=== PATIENT | male | born 1970 | race African-American/Black ===

== ENCOUNTER 2017-02-04 11:17 | Inpatient (IN) | payer MEDICARE, OTHER ==
--- NOTE | ~2017-02-04 | DS ---
Discharge Summary [facility] [address] [facility] [place]. [address] NAME: KATHERIN HOPE : 70 STATUS : ADM IN [facility]#: [id number] AGE: 46 ADM/REG DATE : 02/04/17 MR#: [id number] REPORT SERV DATE: 02/06/17 DICTATED BY: COLBY WALTON DATE: 02/06/17 REPORT STATUS : Draft TRANSCRIBED BY: MODL DATE: 02/06/17 ADMISSION DATE: 02/04/2017 DISCHARGE DATE: 02/06/2017 DISCHARGE DIAGNOSES: 1. Community-acquired pneumonia, currently improving. 2. Asthma and chronic obstructive pulmonary disease, stable. 3. Chronic pain syndrome. 4. Hyperlipidemia. 5. Hypertension. 6. History of PE, after spine surgery, currently resolved. 7. Acute kidney injury, now resolved. CONSULTANTS DURING THIS HOSPITALIZATION: None. INVASIVE PROCEDURES DONE DURING THIS HOSPITALIZATION: None. BRIEF HISTORY OF PRESENT ILLNESS: The patient is a 46-year-old male with the above issues, came in with shortness of breath and midsternal chest pain, and thought that he had a PE, so he was admitted. For detailed history and physical exam, please see my note dictated on 02/04/2017. HOSPITAL COURSE: When I saw the patient in the emergency room, his CTA was already negative. He has not been on any anticoagulation and he has finished a course of his anticoagulation; however, on the CTA, there was a left upper lobe infiltrate and lingular infiltrate with a white count of 17,000. He was admitted. He was given aggressive nebulizing treatments. He was given IV antibiotics. Blood cultures remained negative at this time. His procalcitonin level was elevated at 4.07. Within 24 hours, he continued to improve. He was switched to oral medications. He is not requiring O2. He is ambulatory. He is tolerating a diet and at this point, he feels that he can go home and recover in the home setting. DISCHARGE DISPOSITION: Home. DISCHARGE ACTIVITY: As tolerated. DISCHARGE DIET: Low sodium diet. DISCHARGE MEDICATIONS: Zithromax 250 mg one tablet daily for two more days, Omnicef 300 mg one tablet twice daily for five more days, Zovirax 800 mg p.o. five times daily to finish a course of therapy for shingles, Lipitor 20 mg daily, Flonase one spray each nostril daily, hydrocodone 10/325 one tablet four times daily, Protonix 40 mg once daily, Lyrica 150 mg twice daily, Zantac 150 mg once daily, lisinopril 20 mg once daily, Incruse Ellipta one puff once daily, Breo Ellipta one puff once daily, Atrovent two puffs nasal spray, albuterol one puff every four hours p.r.n., Fioricet one tablet p.o. daily p.r.n. for headache, Flexeril 10 mg daily p.r.n. for muscle spasms, and Vistaril 25 mg p.o. daily. Discharge Summary [address] [address] NAME: KATHERIN HOPE : 70 STATUS : ADM IN PAT#: [id number] AGE: 46 ADM/REG DATE : 02/04/17 MR#: [id number] REPORT SERV DATE: 02/06/17 DICTATED BY: COLBY WALTON DATE: 02/06/17 REPORT STATUS : Draft TRANSCRIBED BY: PETER DATE: 02/06/17 DISCHARGE FOLLOWUP: With Dr. Joe Reynoso, Sr in one week for repeat chest x-ray. More than 30 minutes spent planning this patient's discharge, reconciling medications, writing prescriptions, discussing hospital care, and follow up with the patient, and documenting this discharge. JUAN/PETER Colby Walton M.D. / [id number] CC: Capo Ramírez,
--- NOTE | ~2017-02-04 | HP ---
History And Physical [place] [address] [place] [place]. [address] NAME: KATHERIN HOPE : 70 STATUS : ADM IN [facility]#: [id number] AGE: 46 ADM/REG DATE : 02/04/17 MR#: [id number] REPORT SERV DATE: 02/04/17 DICTATED BY: COLBY BILLY DATE: 02/04/17 REPORT STATUS : Draft TRANSCRIBED BY: MODMadelaine DATE: 02/04/17 DATE OF ADMISSION: 02/04/2017 CHIEF COMPLAINT: Cough and chest pain. HISTORY OF PRESENT ILLNESS: The patient is a 46-year-old male who came to [facility] Emergency Room at 1034 hours on 02/04/2017 with complaints of chest pain and cough with some shortness of breath. He said the last night when he went to bed he felt okay, but he has been feeling poorly for the last two days, and then this morning, he woke up with a chest pain that he thought was because of his class as he has a history of pulmonary emboli in the past. He has not had any fever or chills. He denies any nausea or vomiting. His cough is nonproductive. He denies any blood in his cough. He has noted some back pain, but he attributes that to his prior surgeries. When he came to the hospital, initially he was thought to have his pulmonary emboli and was told that he had a pulmonary emboli and was started on a heparin drip. Medicine Service was asked to see the patient because he had tachycardia and white count of 17,000. This patient denied any other constitutional symptoms. REVIEW OF SYSTEMS: Otherwise, negative except for what is noted in the HPI. PAST MEDICAL HISTORY: Significant for hypertension, hyperlipidemia, and chronic back pain due to prior spinal surgery under pain management. PAST SURGICAL HISTORY: Significant for spinal fusion with multiple screws into the pedicles and rods. 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 He also has a history of pulmonary emboli that was related to his spine surgery. He has had a cholecystectomy. ALLERGIES: NO KNOWN DRUG ALLERGIES. HOME MEDICATIONS: Will be reviewed by myself when available from Pharmacy. SOCIAL HISTORY: He admits to smoking one-third pack per day for the last 28 years. He rarely uses alcohol. He has had a history of drug abuse in the past, none since last eight years. He currently is employed, working as a food checkers and cashiers supervisor. He has not been exposed to any fumes or any chemicals. No sick contacts. He has not traveled outside the country anywhere. FAMILY HISTORY: Significant for hypertension, but otherwise, unremarkable. PHYSICAL EXAMINATION: GENERAL: male, lying on a gurney, appears to be in no respiratory distress. He is awake and alert. He is oriented. VITAL SIGNS: Blood pressure 90/39, pulse of 129, saturation of 96% on room air, and temperature is 98.0. History And Physical [address] [address] NAME: KATHERIN HOPE : 70 STATUS : ADM IN [facility]#: [id number] AGE: 46 ADM/REG DATE : 02/04/17 MR#: [id number] REPORT SERV DATE: 02/04/17 DICTATED BY: COLYB BILLY DATE: 02/04/17 REPORT STATUS : Draft TRANSCRIBED BY: PETER DATE: 02/04/17 HEENT: Head is normocephalic and atraumatic. Pupils are equal, round, and reactive to light. Extraocular muscles are intact. Sclerae are anicteric. Conjunctivae are normal. Oropharynx without lesion. Tongue protrusion midline. Uvula midline. NECK: Supple. No jugular venous distention. No carotid bruits or thyromegaly is appreciated. No lymphadenopathy in the neck is palpable. HEART: Regular rate rhythm. Tachycardia is noted. No murmurs, rubs, or gallops. PMI nondisplaced. LUNGS: There are some diffuse crackles in both lower lung areas. No evidence of any focal consolidation. No rales, rhonchi, or wheezing is noted. ABDOMEN: Slightly obese, soft, and nontender. Good bowel sounds. No rebound or guarding. No organomegaly. EXTREMITIES: Without cyanosis, clubbing, or edema. NEUROLOGICAL: Seems to be grossly intact. LABS: The electrolyte panel is completely normal except his creatinine is slightly elevated at 1.4. He has a white count of 17.7, hemoglobin of 12.5, hematocrit 36, and platelet count is 189,000. He has a slightly low MCV of 74. His troponin is less than 0.02. PT is 14, INR 1.1, PTT 31. Calcium is 8.9 and magnesium 2.2. CTA, negative for pulmonary emboli, a patchy infiltrate in the left upper lobe and lingula is noted. Chest x-ray, atelectasis. EKG, sinus tachycardia, no acute ST-T wave changes. IMPRESSION: 1. Pneumonia. 2. Acute kidney injury. 3. Chronic pain syndrome. 4. History of spinal infection. 5. Hyperlipidemia. 6. History of pulmonary emboli. PLAN: The patient will be admitted. IV Zithromax and Rocephin will be started. IV fluids will be given. Aggressive nebulizing treatments will be given. We will repeat a chest x- ray at this time. I do not see that this is cardiac in origin, so no echo is needed. His troponin is negative. We will address his home medications when available. He will be placed on DVT prophylaxis using subcutaneous heparin, reasonable pain control will be provided. JUAN/PETER Colby Billy M.D. / [id number] CC: Colby Billy M.D.
[~2017-02-04 11:17] MED LIST: DENIES HOME MEDS
[2017-02-04 11:30] LABS: BASOPHILS 0.1 %; BASOPHILS ABSOLUTE 0.01 10/3/uL (0.0-0.16); BUN (BLOOD UREA NITROGEN) 21 MG/DL (6-23); CALCIUM, SERUM 8.9 MG/DL (8.5-10.4); CHEST PAIN PROFILE TAT 0 Hrs 20 Mins; CHLORIDE, SERUM 102 MMOL/L (96-112); CO2 (CARBON DIOXIDE) 27 MMOL/L (24-34); CREATININE 1.48 MG/DL (0.70-1.30); EOSINOPHILS 0.6 %; GFR AFRICAN AMERICAN 65 ML/MIN (>=60); GFR NON AFRICAN AMERICAN 56 ML/MIN (>=60); GLUCOSE, SERUM 93 MG/DL (60-99); HEMATOCRIT 36.9 % (40.0-51.0); HEMOGLOBIN 12.5 g/dL (13.6-17.8); IMMATURE GRANULOCYTES 0.4 %; IMMATURE GRANULOCYTES ABSOLUTE 0.07 10/3/uL (0.0-0.11); LYMPHOCYTES 7.3 %; LYMPHOCYTES ABSOLUTE 1.29 10/3/uL (0.67-4.30); MEAN CORPUS HGB CONC 33.9 g/dL (32.0-36.0); MEAN CORPUSCULAR HEMOGLOB 24.4 pg (26.0-34.0); MEAN CORPUSCULAR VOLUME 72.1 fL (80-100); MONOCYTES 4.9 %; MONOCYTES ABSOLUTE 0.86 10/3/uL (0.21-1.20); NEUTROPHILS 86.7 %; NEUTROPHILS ABSOLUTE 15.37 10/3/uL (2.02-8.40); PLATELET COUNT 189 10/3/uL (150-400); POTASSIUM, SERUM 4.7 MMOL/L (3.5-5.3); RBC DISTRIBUTION WIDTH 18.4 % (12.0-16.0); RED CELL COUNT 5.12 10/6/uL (4.7-6.1); SODIUM, SERUM 136 MMOL/L (135-148); TROPONIN I <0.02 NG/ML (<0.05); WHITE BLOOD CELLS 17.7 10/3/uL (4.5-10.5)
[2017-02-04 11:31] LABS: ER CBC TAT 0 Hrs 20 Mins; MANUAL DIFF NO %
[2017-02-04 11:41] LABS: INTERNATIONAL NORMAL RATI 1.1 UNITS (-); PARTIAL THROMBO TIME 31.2 SEC (22.5-37.2); PROTIME (NOT ORD) 14.4 SEC (12.0-14.5)
[2017-02-04 11:48] LABS: ANISOCYTOSIS 1+ (5-10/OIF) (0-5/OIF); HYPOCHROMIA 1+ (3-10/OIF) (0-2/OIF); PLATELET ESTIMATE ADQ (ADEQUATE); RBC MORPHOLOGY ABN (NORMAL); TARGET CELLS OCC (1-2/OIF) (0-1/OIF)
[2017-02-04] MEDS ORDERED: ZOVI800 PO (15:35)
[2017-02-04] MEDS ORDERED: ZANTAC150 MG PO (15:35)
[2017-02-04] MEDS ORDERED: PRIN20 PO (15:36)
[2017-02-04] MEDS ORDERED: NORCO1 TAB PO (15:37)
[2017-02-04] MEDS ORDERED: LIPITOR20 PO (15:38)
[2017-02-04] MEDS ORDERED: INCRUSE ELLI62.5 MCG INH (15:39)
[2017-02-04] MEDS ORDERED: LYRICA150 MG PO (15:39)
[2017-02-04] MEDS ORDERED: PROTONIX PO (15:39)
[2017-02-04] MEDS ORDERED: FLONASE NAS (15:40)
[2017-02-04] MEDS ORDERED: BREO ELLIPTA 21 EACH INH (15:42)
[2017-02-04] MEDS ORDERED: ATRONASAL3 NAS (15:43)
[2017-02-04] MEDS ORDERED: VENTOLIN HFA INH (15:43)
[2017-02-04] MEDS ORDERED: FIORICET 50-301 EACH PO (15:44)
[2017-02-04] MEDS ORDERED: FLEX PO (15:45)
[2017-02-04] MEDS ORDERED: VIST25 PO (15:46)
[2017-02-05 06:00] LABS: BASOPHILS 0.1 %; BASOPHILS ABSOLUTE 0.02 10/3/uL (0.0-0.16); EOSINOPHILS 0.8 %; EOSINOPHILS ABSOLUTE 0.13 10/3/uL (0.0-0.53); HEMATOCRIT 34.7 % (40.0-51.0); HEMOGLOBIN 11.9 g/dL (13.6-17.8); IMMATURE GRANULOCYTES 0.5 %; IMMATURE GRANULOCYTES ABSOLUTE 0.08 10/3/uL (0.0-0.11); LYMPHOCYTES 13.5 %; LYMPHOCYTES ABSOLUTE 2.28 10/3/uL (0.67-4.30); MEAN CORPUS HGB CONC 34.3 g/dL (32.0-36.0); MEAN CORPUSCULAR HEMOGLOB 24.5 pg (26.0-34.0); MEAN CORPUSCULAR VOLUME 71.5 fL (80-100); MONOCYTES ABSOLUTE 0.85 10/3/uL (0.21-1.20); NEUTROPHILS 80.1 %; NEUTROPHILS ABSOLUTE 13.49 10/3/uL (2.02-8.40); PLATELET COUNT 213 10/3/uL (150-400); RBC DISTRIBUTION WIDTH 18.3 % (12.0-16.0); RED CELL COUNT 4.85 10/6/uL (4.7-6.1); WHITE BLOOD CELLS 16.9 10/3/uL (4.5-10.5)
[2017-02-05 06:06] LABS: MANUAL DIFF NO %
[2017-02-05 06:10] LABS: A/G RATIO 0.6 (0.7-1.9); ALBUMIN 2.9 G/DL (3.5-5.0); ALKALINE PHOSPHATASE 207 U/L (45-117); BUN (BLOOD UREA NITROGEN) 19 MG/DL (6-23); CALCIUM, SERUM 8.5 MG/DL (8.5-10.4); CHLORIDE, SERUM 104 MMOL/L (96-112); CO2 (CARBON DIOXIDE) 25 MMOL/L (24-34); CREATININE 1.07 MG/DL (0.70-1.30); GFR AFRICAN AMERICAN 96 ML/MIN (>=60); GFR NON AFRICAN AMERICAN 83 ML/MIN (>=60); GLOBULIN 5.2 G/DL (2.5-4.1); GLUCOSE, SERUM 92 MG/DL (60-99); POTASSIUM, SERUM 4.4 MMOL/L (3.5-5.3); SGOT(AST) 50 U/L (5-40); SGPT(ALT) 117 U/L (5-65); SODIUM, SERUM 136 MMOL/L (135-148); TOTAL BILIRUBIN 0.4 MG/DL (0-1.2); TOTAL PROTEIN 8.1 G/DL (6.0-8.5)
[2017-02-05 06:55] LABS: PROCALCITONIN 4.07 ng/mL (<0.5)
[2017-02-05 07:23] LABS: ANISOCYTOSIS 1+ (5-10/OIF) (0-5/OIF); PLATELET ESTIMATE ADQ (ADEQUATE)
[2017-02-06 05:15] LABS: BASOPHILS 0.1 %; BASOPHILS ABSOLUTE 0.01 10/3/uL (0.0-0.16); EOSINOPHILS 1.7 %; EOSINOPHILS ABSOLUTE 0.17 10/3/uL (0.0-0.53); HEMATOCRIT 34.2 % (40.0-51.0); HEMOGLOBIN 11.6 g/dL (13.6-17.8); IMMATURE GRANULOCYTES 0.5 %; IMMATURE GRANULOCYTES ABSOLUTE 0.05 10/3/uL (0.0-0.11); LYMPHOCYTES 19.5 %; LYMPHOCYTES ABSOLUTE 1.97 10/3/uL (0.67-4.30); MEAN CORPUS HGB CONC 33.9 g/dL (32.0-36.0); MEAN CORPUSCULAR HEMOGLOB 24.5 pg (26.0-34.0); MEAN CORPUSCULAR VOLUME 72.2 fL (80-100); MONOCYTES 7.9 %; NEUTROPHILS 70.3 %; NEUTROPHILS ABSOLUTE 7.11 10/3/uL (2.02-8.40); PLATELET COUNT 207 10/3/uL (150-400); RBC DISTRIBUTION WIDTH 18.4 % (12.0-16.0); RED CELL COUNT 4.74 10/6/uL (4.7-6.1)
[2017-02-06 05:17] LABS: MANUAL DIFF NO %; WHITE BLOOD CELLS 10.1 10/3/uL (4.5-10.5)
[2017-02-06 05:41] LABS: GIANT PLATELET FEW; PLATELET ESTIMATE ADQ (ADEQUATE)
[2017-02-06 05:42] LABS: ANISOCYTOSIS 1+ (5-10/OIF) (0-5/OIF); MICROCYTES 1+ (5-10/OIF) (0-5/OIF); RBC MORPHOLOGY ABN (NORMAL)
[2017-02-06] MEDS ORDERED: ZITH250 PO (08:54)
[2017-02-06] MEDS ORDERED: OMNICEF300 PO (08:55)
== END 2017-02-06 09:40 | disposition home or self-care (01) | DRG 190 ==
LOC: ER 11:17 → CDU1 15:58
PROVIDERS: Emergency Medicine; Internal Medicine
DX: J44.0 Chronic obstructive pulmonary disease with (acute) lower respiratory infection (principal); J18.9 Pneumonia, unspecified organism; N17.9 Acute kidney failure, unspecified; I10 Essential (primary) hypertension; E78.5 Hyperlipidemia, unspecified; M54.9 Dorsalgia, unspecified; G89.4 Chronic pain syndrome; F17.210 Nicotine dependence, cigarettes, uncomplicated; Z98.1 Arthrodesis status; Z90.49 Acquired absence of other specified parts of digestive tract; Z82.49 Family history of ischemic heart disease and other diseases of the circulatory system; Z86.711 Personal history of pulmonary embolism
CPT/HCPCS: 71010; 71020; 71275; 80048; 80053; 83605; 83735; 84145; 84484; 85025; 85610; 85730; 86738; 87040; 87449; 93005; 94640; 96365; 96366; 99291; A9270-GY; J0456; J1170; Q9967